=== PATIENT | female | born 2000 | race American Indian/Alaskan Native ===

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

== ENCOUNTER 2022-02-26 14:57 | Outpatient (CLI) | payer MEDICAID ==
[2022-02-26] MEDS ORDERED: LACTATED RINGERS 500 ML IV ONE (17:00)
[2022-02-26 17:08] LABS: RBC,Urine < 1.0 /HPF (0.0-6.0)
[2022-02-26 17:16] LABS: Bilirubin,Urine Negative (Negative); Blood,Urine Negative (Negative); Color,Urine Yellow (Yellow); Protein,Urine <15 mg/dL mg/dL (Negative); Urobilinogen,Urine < 2.0 mg/dL (<2.0); WBC,Urine < 1.0 /HPF (0.0-6.0)
[2022-02-26 17:40] VITALS: BP 120/58
--- NOTE | 2022-02-26 18:13 | Event Note ---
Date: 02/26/22 To patient room for SVE as patient complains of leakage of fl;uid. Speculum placed. No fluid noted or expressed with valsalva. Nitrazine negative. EVELYN 14. No signs of SROM.
--- NOTE | 2022-02-26 18:28 | Ultrasound Report ---
ULTRASOUND OBSTETRIC LIMITED INDICATION / CLINICAL INFORMATION: R/O rupture. Evaluate amniotic fluid index Clinical Gestational Age (GA) in weeks, days: 24, 3 TECHNIQUE: Transabdominal. COMPARISON: None available. FINDINGS: HEART RATE (beats per minute): 152 AMNIOTIC FLUID INDEX (cm) = 14.9 (normal = 7-24 cm) PRESENTATION: Cephalic. ADDITIONAL FINDINGS: None. IMPRESSION: 1. Amniotic fluid index is 14.9. heart rate is 152 bpm. Signer Name: Dwayne Zaragoza MD Signed: 02/26/2022 6:24 PM Workstation Name: [id number]
== END 2022-02-26 18:30 | disposition home or self-care (01) ==
LOC: TRG 14:57 → APU 14:58 → TRG 18:30
PROVIDERS: ATTEND Student in an Organized Health Care Education/Training Program
DX: Z34.82 Encounter for supervision of other normal pregnancy, second trimester (principal); Z3A.24 24 weeks gestation of pregnancy
CPT/HCPCS: 59025; 76815; 81001